=== PATIENT | male | born 1985 | race Caucasian/White ===

== ENCOUNTER → 2021-03-29 16:40 | Outpatient (BNVA) | payer OTHER, SELFPAY | PROVIDERS: PCP Urology; Visit Provider Nurse Practitioner | DX: Z20.822 Contact with and (suspected) exposure to COVID-19 (principal) | CPT/HCPCS: 87635 ==

== ENCOUNTER 2021-04-06 08:40 | Outpatient (CLI) | payer SELFPAY ==
[2021-04-06 09:24] VITALS: BP 121/80; PULSE 84; RESP 16; TEMP 37.4; O2SAT 97; BMI 29.8
[2021-04-06 09:55] VITALS: BP 126/70; PULSE 80; RESP 18; O2SAT 97
[2021-04-06 10:50] VITALS: BP 125/77; PULSE 103; RESP 18; TEMP 37.9; O2SAT 95
== END 2021-04-06 08:41 | disposition home or self-care (01) ==
PROVIDERS: PCP Urology; Visit Provider Nurse Practitioner Family
DX: U07.1 COVID-19 (principal)
CPT/HCPCS: 96365